=== PATIENT | male | born 1950 | race Caucasian/White ===

== ENCOUNTER 2016-11-13 15:44 | Emergency (ER) | payer BC, OTHER ==
[~2016-11-13] VITALS: Ht 182.9 cm; Wt 91.2 kg
[~2016-11-13 15:44] MED LIST: ASPI325T2 PO; HYDR-1189 PO; LOSA50TA3 PO; METO25TA3 PO; OMEG500C3 PO; OMEP20CA4 PO; SIMV20TA2 PO; UBID50TA3 PO; VITA-219 PO; VITD400 PO
[2016-11-13 15:58] VITALS: BP 129/96; PULSE 80; RESP 14; TEMP 97.7; O2SAT 99
[2016-11-13] MEDS ORDERED: NACL 0.9% 1,000 ML IV ONE (16:17)
[2016-11-13] MEDS ORDERED: HYDROmorphone 1 MG INJ. 1 MG/ML AMPUL IVP ONE ×3 (16:30→18:00)
[2016-11-13] MEDS ORDERED: ONDANSETRON HCL 4 MG/2 ML VIAL IVP ONE (16:30)
[2016-11-13 16:40] LABS: MEAN CORPUSCULAR HEMOGLOBIN 29 pg (27-31)
[2016-11-13] MEDS ORDERED: LOPE2CAP PO (16:42)
[2016-11-13] MEDS ORDERED: METO25TA6 PO (16:42)
[2016-11-13] MEDS ORDERED: GABA-529 PO (16:42)
[2016-11-13 16:47] LABS: EOSINOPHILS % (AUTO) 0.2 % (0.0-4.0); MEAN CORPUSCULAR VOLUME 89 fL (79.0-98.0); NEUTROPHILS # (AUTO) 5.3 K/uL (1.8-7.7); PLATELET COUNT (AUTO) 202 K/uL (130-430)
[2016-11-13 17:05] LABS: BILIRUBIN,URINE 1+ (NEGATIVE); BLOOD, URINE 1+ (NEGATIVE); CLARITY/URINE SL HAZY (CLEAR); COLOR,URINE YELLOW (YELLOW); GLUCOSE,URINE NEGATIVE (NEGATIVE); KETONES,URINE 1+ (NEGATIVE); LEUKOCYTE ESTERASE ,URINE NEGATIVE (NEGATIVE); NITRITE, URINE NEGATIVE (NEGATIVE); PH,URINE 5.5 (5.0-8.0); PROTEIN URINE 1+ (NEGATIVE); UROBILINOGEN,URINE 0.2 (0.2-1.0)
[2016-11-13 17:11] LABS: BASOPHILS # (AUTO) 0.1 K/uL (0.0-0.2); BASOPHILS % (AUTO) 1.1 % (0.0-2.0); HEMATOCRIT 44.9 % (36-54); HEMOGLOBIN 14.8 g/dL (14.0-18.0); LYMPHOCYTES % (AUTO) 26.4 % (20.5-51.5); MEAN CORPUSCULAR HGB CONC 33 % (32-36); MONOCYTES # (AUTO) 0.3 K/uL (0.0-1.0); MONOCYTES % (AUTO) 3.7 % (1.7-9.3); NEUTROPHILS % (AUTO) 68.6 % (40.0-70.0); RED BLOOD CELL COUNT(AUTO) 5.08 MIL/uL (4.2-6.2); RED CELL DISTRIBUTION WIDTH 12.8 % (9.0-15.0); WHITE BLOOD COUNT (AUTO) 7.7 K/uL (4.8-10.8)
[2016-11-13 17:16] LABS: ALBUMIN 4.6 g/dL (3.4-4.8); CALCIUM 9.9 mg/dL (8.4-11.0); CREATININE 1.52 mg/dL (0.55-1.30); POTASSIUM 3.6 mmol/L (3.5-5.1); TOTAL BILIRUBIN 2.9 mg/dL (0.0-1.0); TOTAL PROTEIN, SERUM 9.1 g/dL (6.4-8.3)
[2016-11-13 17:17] LABS: PROTHROMBIN TIME 10.9 SECS (9.5-12.5)
[2016-11-13 17:29] LABS: BACTERIA,URINE FEW /HPF (None Seen); RBC,URINE 0-3 /HPF (0-3); WBC,URINE 0-3 /HPF (0-3)
[2016-11-13 17:30] LABS: MUCUS,URINE 2+ /LPF (None Seen)
[2016-11-13 18:14] VITALS: BP 147/86; PULSE 76; RESP 12; TEMP 97.3; O2SAT 100
== END 2016-11-13 18:14 | disposition home or self-care (01) ==
LOC: SED 15:44
DX: N13.30 Unspecified hydronephrosis (principal); I10 Essential (primary) hypertension; Z85.038 Personal history of other malignant neoplasm of large intestine; Z90.49 Acquired absence of other specified parts of digestive tract; Z79.899 Other long term (current) drug therapy
CPT/HCPCS: 36415; 74176; 80053; 81000; 82150; 83690; 85025; 85610; 85730; 96361; 96374; 96375; 96376; 99285; J1170; J2405; J7030